=== PATIENT | female | born 1945 | race Caucasian/White ===

== ENCOUNTER 2019-05-14 14:49 | Outpatient (CLI) | payer MEDICARE | END 2019-05-14 23:59 | disposition home or self-care (01) | LOC: RAD 14:49 | PROVIDERS: ATTEND Family Medicine | DX: C85.98 Non-Hodgkin lymphoma, unspecified, lymph nodes of multiple sites (principal) | CPT/HCPCS: 76881 ==

== ENCOUNTER 2019-05-28 09:27 | Outpatient (CLI) | payer MEDICARE ==
[2019-05-28] MEDS ORDERED: iohexol 300 MG/1 ML 50ml polymer ONE (09:44)
[2019-05-28] MEDS ORDERED: iohexol 300mg/ml 100ml inj. ONE (09:45)
== END 2019-05-28 23:59 | disposition home or self-care (01) ==
LOC: 64 CT 09:27
PROVIDERS: ATTEND Internal Medicine
DX: K57.30 Diverticulosis of large intestine without perforation or abscess without bleeding (principal); M43.27 Fusion of spine, lumbosacral region; M16.10 Unilateral primary osteoarthritis, unspecified hip; K44.9 Diaphragmatic hernia without obstruction or gangrene; J98.11 Atelectasis; I70.8 Atherosclerosis of other arteries
CPT/HCPCS: 70491; 71260; 74177; Q9967

== ENCOUNTER 2021-02-09 14:30 | Emergency (ER) | payer MEDICARE ==
[~2021-02-09] VITALS: Ht 162.6 cm; Wt 79.5 kg
[2021-02-09 14:56] VITALS: BP 133/58
--- NOTE | 2021-02-09 16:15 | NUR ---
NURSE ATTEMPTED TO OBTAIN [employer] FOR MCOVID TEST, BUT PATIENT STATES SHE DOES NOT WANT THE TEST DONE BECAUSE THE SWAB GOES BACK INTO THE [employer]. PATIENT CHOSE TO LEAVE THE ER AND WILL SEEK A TEST ELSEWHERE.
== END 2021-02-09 16:20 | disposition left against medical advice (07) ==
LOC: ER 14:30
DX: R05.9 Cough, unspecified (principal); R52 Pain, unspecified; R53.83 Other fatigue; Z53.21 Procedure and treatment not carried out due to patient leaving prior to being seen by health care provider

== ENCOUNTER 2021-02-09 18:12 | Emergency (ER) | payer MEDICARE ==
[~2021-02-09] VITALS: Ht 162.6 cm; Wt 79.5 kg
[2021-02-09] MEDS ORDERED: CASIRIVIMAB/IMDEVIMAB inject. 10 ML in normal saline 100ml IV soln 100 ML IV ONE (19:15)
--- NOTE | 2021-02-09 19:49 | NUR ---
PT TOLERATING INFUSION WELL, DENIES ANY PROBLEMS.
[2021-02-09 20:23] VITALS: BP 178/81
== END 2021-02-09 20:18 | disposition home or self-care (01) ==
LOC: ER 18:12
DX: U07.1 COVID-19 (principal); R05.9 Cough, unspecified; J45.909 Unspecified asthma, uncomplicated; Z88.0 Allergy status to penicillin; Z88.8 Allergy status to other drugs, medicaments and biological substances; Z91.040 Latex allergy status; Z72.89 Other problems related to lifestyle
CPT/HCPCS: 71045; 99283; M0243; Q0244